=== PATIENT | female | born 1965 | race Caucasian/White ===

== ENCOUNTER 2017-10-27 10:04 | Emergency (ER) | payer BC, OTHER ==
[~2017-10-27 10:04] MED LIST: ISOVUE-370 76%-LOCM 1 ML ONE
[2017-10-27 11:08] LABS: #Basophils 0.1 thou/uL (0.0-0.2); #Eosinphils 0.1 thou/uL (0.0-0.7); #Lymphocytes 2.4 thou/uL (1.20-3.40); #Monocytes 1.1 thou/uL (0.11-0.59); #Neutrophils 9.4 thou/uL (1.40-6.50); %Basophils 0.5 % (0.0-1.0); %Eosinophils 0.5 % (0.0-10.0); %Lymphocytes 18.3 % (21.0-51.0); %Monocytes 8.2 % (0.0-10.0); %Neutrophils 72.4 % (42.0-75.0); Mean Corpuscular HGB CONC 33.7 g/dL (32.0-36.0); Mean Corpuscular Hemoglobin 29.4 pg (27.0-31.0); Mean Platelet Volume 5.4 fL (7.4-10.4); Platelet Count 608 thou/uL (130-400); RBC Distribution Width 13.6 % (11.5-14.5); Red Blood Cell (RBC) Count 4.08 mill/uL (4.20-5.40)
[2017-10-27 11:19] LABS: Bilirubin Negative (Negative); Blood, Urine Negative (Negative); Clarity CLEAR (Clear); Glucose, Urine (Dipstick) Negative (Negative); Leukocyte Negative (Negative); Nitrite Negative (Negative); Protein, Urine (Dipstick) Trace mg/dL (Neg-Trace); Specific Gravity, Urine 1.028 (1.002-1.036)
[2017-10-27 11:31] LABS: ALT (SGPT) 27 U/L (8-55); AST (SGOT) 40 U/L (5-34); Albumin 3.8 g/dL (3.5-5.0); Alkaline Phosphatase 150 U/L (40-150); Anion Gap 16 mmol/L (10-20); BUN (Urea Nitrogen) 11 mg/dL (9.8-20.1); Bilirubin, Total 0.2 mg/dL (0.2-1.2); Calc. Creatinine Clearance 0 mL/min (70-130); Calcium 9.2 mg/dL (7.8-10.44); Carbon Dioxide 23 mmol/L (22-29); Chloride 102 mmol/L (98-107); Estimated GFR-MDRD 88; Globulin 3.6 g/dL (2.4-3.5); Glucose 64 mg/dL (70-105); Potassium 4.5 mmol/L (3.5-5.1); Protein, Total 7.4 g/dL (6.0-8.3); Sodium 136 mmol/L (136-145)
--- NOTE | 2017-10-27 11:43 | CT ---
CT ABDOMEN AND PELVIS WITH IV CONTRAST: Date: 10/27/17 HISTORY: Abdomen pain. FINDINGS: No comparison. Lung bases are clear. Liver, spleen, kidneys, adrenal glands, and pancreas are within normal limits. Nonspecific lymph nodes scattered about the abdomen and pelvis. Degenerative changes lumbar spine. Ur inary bladder decompressed. Small, fat-containing left inguinal hernia. IMPRESSION: No significant abnormalities are demonstrated. POS: ODILIA
== END 2017-10-27 11:43 | disposition home or self-care (01) ==
LOC: ERS 10:04
DX: K40.90 Unilateral inguinal hernia, without obstruction or gangrene, not specified as recurrent (principal); G43.909 Migraine, unspecified, not intractable, without status migrainosus; I10 Essential (primary) hypertension; R56.9 Unspecified convulsions; Z79.899 Other long term (current) drug therapy
CPT/HCPCS: 74177; 80053; 81003; 85025

== ENCOUNTER 2017-10-30 13:59 | Outpatient (CLI) | payer OTHER | END 2017-10-30 14:00 | disposition home or self-care (01) | LOC: LABBT 13:59 | PROVIDERS: ATTEND Specialist | DX: Z01.818 Encounter for other preprocedural examination (principal); K40.90 Unilateral inguinal hernia, without obstruction or gangrene, not specified as recurrent | CPT/HCPCS: 93005; 93010 ==

== ENCOUNTER 2018-01-19 16:26 | Emergency (ER) | payer OTHER ==
[2018-01-19 16:56] LABS: Bilirubin Negative (Negative); Blood, Urine Negative (Negative); Clarity CLEAR (Clear); Glucose, Urine (Dipstick) Negative (Negative); Leukocyte Negative (Negative); Nitrite Negative (Negative); Protein, Urine (Dipstick) Negative (Neg-Trace); Specific Gravity, Urine 1.007 (1.002-1.036); Urobilinogen 0.2 mg/dL (0.2-1.0)
[2018-01-19] MEDS ORDERED: Ketorolac Tromethamine 60 MG/2 ML VIAL ONE (17:15)
--- NOTE | 2018-01-19 18:15 | RAD ---
THREE VIEWS LUMBAR SPINE 01/19/18 HISTORY: Lower back pain with pain radiating down left lower extremity. FINDINGS: There are five nonribbearing lumbar type vertebral bodies. There is a wedge shaped compression fractu re involving the L1 vertebral body. However, the degree of height loss appears similar to study on 10/27/17. The remaining vertebral body heights are within normal limits. No additional fracture is seen and the re is no evidence of a subluxation. There is exaggerated kyphosis of the thoracolumbar spine centered at the level of the compression fracture. There are degenerative changes present at the T12-L1 and L 1-2 levels with narrowing of the intervertebral disc spaces and osteophyte formation. There are facet degenerative changes seen in the lower lumbar spine. IMPRESSION: 1. Wedge shaped compression fracture L1 vertebral body which is stable when compared to CT abdom en on 10/27/17. 2. No evidence of a subluxation. No new fracture is seen. 3. Exaggerated kyphosis at the thoracolumbar junction. POS: MARCELINO
== END 2018-01-19 18:47 | disposition home or self-care (01) ==
LOC: ERS 16:26
DX: G89.29 Other chronic pain (principal); M54.12 Radiculopathy, cervical region; G43.909 Migraine, unspecified, not intractable, without status migrainosus; I10 Essential (primary) hypertension; Z79.899 Other long term (current) drug therapy
CPT/HCPCS: 72100; 81003; 96372; J1885

== ENCOUNTER 2018-03-13 12:07 | Outpatient (CLI) | payer OTHER | END 2018-03-13 12:08 | disposition home or self-care (01) | LOC: BICMRI 12:07 | PROVIDERS: ATTEND Family Medicine | DX: S32.010A Wedge compression fracture of first lumbar vertebra, initial encounter for closed fracture (principal); M51.26 Other intervertebral disc displacement, lumbar region; M99.83 Other biomechanical lesions of lumbar region | CPT/HCPCS: 72148 ==

== ENCOUNTER 2018-04-20 10:39 | Emergency (ER) | payer OTHER ==
[2018-04-20] MEDS ORDERED: ISOVUE-370 76%-LOCM 1 ML ONE (10:49)
[2018-04-20 11:49] LABS: Bilirubin Negative (Negative); Blood, Urine Negative (Negative); Clarity CLEAR (Clear); Glucose, Urine (Dipstick) Negative (Negative); Leukocyte Negative (Negative); Nitrite Negative (Negative); Protein, Urine (Dipstick) Negative (Neg-Trace)
[2018-04-20 11:55] LABS: #Basophils 0.1 thou/uL (0.0-0.2); #Eosinphils 1.3 thou/uL (0.0-0.7); #Lymphocytes 2.2 thou/uL (1.20-3.40); #Monocytes 0.4 thou/uL (0.11-0.59); #Neutrophils 3.6 thou/uL (1.40-6.50); %Basophils 1.1 % (0.0-1.0); %Eosinophils 17.4 % (0.0-10.0); %Lymphocytes 28.8 % (21.0-51.0); %Monocytes 5.4 % (0.0-10.0); %Neutrophils 47.3 % (42.0-75.0); Hemoglobin 12.1 g/dL (12.0-16.0); Mean Corpuscular HGB CONC 32.3 g/dL (32.0-36.0); Mean Corpuscular Hemoglobin 27.8 pg (27.0-31.0); Mean Platelet Volume 6.4 fL (7.4-10.4); Platelet Count 595 thou/uL (130-400); RBC Distribution Width 13.3 % (11.5-14.5); Red Blood Cell (RBC) Count 4.34 mill/uL (4.20-5.40); White Blood Cell (WBC) Count 7.6 thou/uL (4.8-10.8)
[2018-04-20 12:16] LABS: ALT (SGPT) 15 U/L (8-55); AST (SGOT) 20 U/L (5-34); Albumin 4.1 g/dL (3.5-5.0); Alkaline Phosphatase 130 U/L (40-150); Anion Gap 15 mmol/L (10-20); BUN (Urea Nitrogen) 13 mg/dL (9.8-20.1); Bilirubin, Total 0.2 mg/dL (0.2-1.2); Calc. Creatinine Clearance 0 mL/min (70-130); Calcium 10.3 mg/dL (7.8-10.44); Carbon Dioxide 29 mmol/L (22-29); Chloride 98 mmol/L (98-107); Estimated GFR-MDRD 39; Globulin 3.5 g/dL (2.4-3.5); Glucose 124 mg/dL (70-105); Protein, Total 7.6 g/dL (6.0-8.3); Sodium 139 mmol/L (136-145)
[2018-04-20 12:19] LABS: Potassium 2.8 mmol/L (3.5-5.1)
[2018-04-20] MEDS ORDERED: Dicyclomine 20 MG TAB ONE (12:41)
[2018-04-20] MEDS ORDERED: Metoclopramide HCl 10 MG/2 ML VIAL ONE ×2 (12:41→12:43)
--- NOTE | 2018-04-20 13:00 | CT ---
CT CHEST WITH IV CONTRAST: Date: 04/20/18 PROVIDED CLINICAL HISTORY: Fever, recent mastectomy. FINDINGS: The heart, pericardium, and great vessels demonstrate an unremarkable CT appearance. The lungs are free of significant opacity. No pleural fluid or pneumothorax apparent. The airway appears patent and of normal caliber. There is no evidence for thoracic lymph node enlargement. There are a few small foci of gas and noncircumscribed fluid density seen overlying portions of the l eft anterior chest wall. There is no evidence for a focal rim-enhancing fluid collection to suggest a n abscess. The osseous structures demonstrate no concerning lytic or blastic lesions. The visualized portions of the upper abdomen demonstrate no acute abnormality. IMPRESSION: Soft tissue findings involving the subcutaneous adipose layer of the left anterior chest wall compati ble with the provided clinical history of recent mastectomy. There is no evidence for a circumscribed rim-enhancing fluid collection to suggest abscess. POS: PATTI
[2018-04-20] MEDS ORDERED: Pot Chloride/Pot Bicarb/Cit Ac 25 mEq Effervescent Tablet PO SCH (13:30)
== END 2018-04-20 14:01 | disposition home or self-care (01) ==
LOC: ERS 10:39
DX: E87.6 Hypokalemia (principal); R11.2 Nausea with vomiting, unspecified; M79.10 Myalgia, unspecified site; G40.909 Epilepsy, unspecified, not intractable, without status epilepticus; G43.909 Migraine, unspecified, not intractable, without status migrainosus; I10 Essential (primary) hypertension; F41.9 Anxiety disorder, unspecified; Z79.899 Other long term (current) drug therapy
CPT/HCPCS: 36415; 71260; 80053; 81003; 85025; 87804; 96365; 96375; J2765

== ENCOUNTER 2018-12-13 10:59 | Day surgery (SDC) | payer OTHER ==
[2018-12-12 14:29] VITALS: BMI 20.9
[2018-12-13] MEDS ORDERED: Heparin 5,000 UNITS/ML VIAL ONE (11:38)
[2018-12-13] MEDS ORDERED: Lidocaine 1% (PF) 30 ML VIAL ONE (11:46)
[2018-12-13] MEDS ORDERED: Bupivacaine/Epinephrine 0.25% 30 ML VIAL ONE (11:46)
[2018-12-13] MEDS ORDERED: EPINEPHrine 1 MG/ML AMP ONE (11:46)
[2018-12-13] MEDS ORDERED: Gentamicin 80 MG/2 ML VIAL ONE ×2 (11:46→14:13)
[2018-12-13] MEDS ORDERED: Sodium Chloride 0.9% 20 ML ONE ×2 (11:46→14:13)
[2018-12-13] MEDS ORDERED: Fentanyl 100 MCG/2 ML VIAL ONE ×3 (12:03→16:28)
[2018-12-13 12:11] LABS: #Monocytes 0.4 thou/uL (0.11-0.59); %Basophils 0.5 % (0.0-1.0); %Lymphocytes 27.2 % (21.0-51.0); %Monocytes 5.8 % (0.0-10.0); %Neutrophils 53.4 % (42.0-75.0); Hemoglobin 10.3 g/dL (12.0-16.0); Mean Corpuscular Hemoglobin 28.6 pg (27.0-31.0); Mean Corpuscular Volume 86.6 fL (78.0-98.0); Platelet Count 552 thou/uL (130-400); RBC Distribution Width 13.9 % (11.5-14.5); Red Blood Cell (RBC) Count 3.59 mill/uL (4.20-5.40); White Blood Cell (WBC) Count 7.4 thou/uL (4.8-10.8)
[2018-12-13 12:36] LABS: Anion Gap 12 mmol/L (10-20); BUN (Urea Nitrogen) 28 mg/dL (9.8-20.1); Calc. Creatinine Clearance 37 mL/min (70-130); Calcium 9.5 mg/dL (7.8-10.44); Carbon Dioxide 35 mmol/L (22-29); Chloride 95 mmol/L (98-107); Estimated GFR-MDRD 33; Glucose 95 mg/dL (70-105); Sodium 139 mmol/L (136-145)
[2018-12-13 12:37] LABS: Potassium 2.9 mmol/L (3.5-5.1)
[2018-12-13] MEDS ORDERED: ePHEDrine 50 MG/ML VIAL ONE (16:13)
[2018-12-13] MEDS ORDERED: Succinylcholine Chloride 20 MG/ML 10 ml SYRINGE FS ONE (16:13)
[2018-12-13] MEDS ORDERED: PROPOFOL 200 MG/20 ML VIAL ONE (16:13)
[2018-12-13] MEDS ORDERED: Ondansetron PF 4 MG/2 ML Vial ONE (16:13)
[2018-12-13] MEDS ORDERED: Glycopyrrolate 0.2 MG/ML 5 ML SYRINGE ONE (16:13)
[2018-12-13] MEDS ORDERED: PHENYLEPHRINE-NS 100 MCG/ML 10 ML SYRINGE ONE (16:13)
[2018-12-13] MEDS ORDERED: Rocuronium Bromide 10 MG/ML (10ML VIAL) ONE (16:13)
[2018-12-13] MEDS ORDERED: Lidocaine 1% PF 5 ML VIAL ONE (16:13)
[2018-12-13] MEDS ORDERED: HYDROcodone/Acetaminophen 5/325 mg Tablet ONE (18:25)
--- NOTE | 2018-12-14 21:59 | OP ---
DATE OF PROCEDURE: 12/13/2018 PREOPERATIVE DIAGNOSES: 1. Genetic susceptibility of breast cancer. 2. Status post bilateral mastectomy. 3. Status post first-stage breast reconstruction. PROCEDURE PERFORMED: 1. Replacement of bilateral tissue terrazzo polisher helper with significant capsular work (99849.50). 2. Right internal Trae flap 40 cm2 (18412). 3. Bilateral fat grafting (37746.13). DESCRIPTION OF PROCEDURE: Following induction of adequate anesthesia, the patient was prepped and draped in the usual sterile fashion in supine position. Attention was first turned to the patient's right breast. The existing inframammary crease scar was incised through. Dissection was carried sharply down to the very thin layer of subcutaneous tissue to the underlying capsule. The previously placed dermal matrix was identified. A large portion of this does not incorporate it. Therefore, it was sharply removed. The pocket was inspected. The submuscular pocket was in good repair other than being very thin. Capsulotomies were made superiorly from 10'o clock to 12'o clock to 2'o clock for expansion of the pocket superiorly. The inframammary crease had been depressed inferiorly on this side. A capsular flap was then elevated approximately 4 cm in height and 10 cm in width. This was done by elevating off the inferior flap and then recreating a sulcus superiorly, thus elevating the right inframammary crease fold. The skin was then de-epithelialized inferiorly and advanced to the new genu and secured using interrupted 2-0 PDS sutures. The pocket was inspected for meticulous hemostasis and copiously irrigated with dilute antibiotic solution followed by 50% Betadine solution. A Turlock (reference number [id number], serial #[id number] was placed in the pocket with a skin barrier in place. This was done after donning new gloves. The incision was then closed with interrupted and running 3-0 PDS suture followed by 3-0 Prolene suture. A similar procedure was done on the left side except for there was no internal flap to raise the inframammary crease fold. The abdomen was then infiltrated with tumescent fluid. After this had adequate time to take effect, the fat was harvested and allowed to decant. After the separation occurred, the residual fat was injected into a thin plane just beneath the dermis. Approximately 50 mL was injected on the right and 40 on the left. The stab incisions were closed. The patient tolerated the procedure well. Job ID: [id number]
== END 2018-12-13 19:00 | disposition home or self-care (01) ==
LOC: SDC 10:59 → EEVIPCON 10:59 → SDC 19:00
PROVIDERS: ATTEND Plastic Surgery
PROC: 0H0V37Z Alteration of Bilateral Breast with Autologous Tissue Substitute, Percutaneous Approach (ICD-10-PCS; principal; 2018-12-13)
PROC: 0HHV0NZ Insertion of Tissue Expander into Bilateral Breast, Open Approach (ICD-10-PCS; principal; 2018-12-13)
DX: Z42.1 Encounter for breast reconstruction following mastectomy (principal); Z85.3 Personal history of malignant neoplasm of breast; Z88.7 Allergy status to serum and vaccine; Z79.899 Other long term (current) drug therapy
CPT/HCPCS: 80048; 85025; J0171; J0690; J1580; J1644; J2001; J2405; J2704; J3010; J3370; J3490

== ENCOUNTER 2018-12-23 13:26 | Emergency (ER) | payer OTHER | END 2018-12-23 13:54 | disposition home or self-care (01) | LOC: ERS 13:26 | DX: L50.0 Allergic urticaria (principal) | CPT/HCPCS: 99283 ==

== ENCOUNTER 2019-03-28 06:42 | Outpatient (CLI) | payer OTHER ==
[2019-03-28 10:28] LABS: Hemoglobin 10.6 g/dL (12.0-16.0); Mean Corpuscular HGB CONC 33.1 g/dL (32.0-36.0); Mean Corpuscular Volume 87.8 fL (78.0-98.0); Mean Platelet Volume 6.4 fL (7.4-10.4); Platelet Count 512 thou/uL (130-400); RBC Distribution Width 13.8 % (11.5-14.5); Red Blood Cell (RBC) Count 3.66 mill/uL (4.20-5.40); White Blood Cell (WBC) Count 6.6 thou/uL (4.8-10.8)
[2019-03-28 10:36] LABS: Bacteria/HPF None Seen HPF (None Seen); Bilirubin Negative (Negative); Blood, Urine Negative (Negative); Clarity Clear (Clear); Glucose, Urine (Dipstick) Normal (Negative); Leukocyte Negative Leu/uL (Negative); Nitrite Negative (Negative); Protein, Urine (Dipstick) Negative (Neg-Trace); RBC/HPF 0-3 HPF (0-3); Squamous Epithelial 0-3 HPF (0-3); Urobilinogen Normal mg/dL (Less than 2); WBC/HPF 0-3 HPF (0-3)
[2019-03-28 10:48] LABS: Anion Gap 12 mmol/L (10-20); BUN (Urea Nitrogen) 14 mg/dL (9.8-20.1); Calc. Creatinine Clearance 0 mL/min (70-130); Carbon Dioxide 25 mmol/L (22-29); Chloride 105 mmol/L (98-107); Estimated GFR-MDRD 74; Glucose 79 mg/dL (70-105); Potassium 4.7 mmol/L (3.5-5.1); Sodium 137 mmol/L (136-145)
--- NOTE | 2019-03-28 18:52 | EKG ---
Test Reason : Blood Pressure : / mmHG Vent. Rate : 051 BPM Atrial Rate : 051 BPM P-R Int : 146 ms QRS Dur : 086 ms QT Int : 476 ms P-R-T Axes : 049 051 050 degrees QTc Int : 438 ms Sinus bradycardia Possible Left atrial enlargement Abnormal ECG When compared with ECG of 30-OCT-2017 14:30, Vent. rate has decreased BY 31 BPM Minimal criteria for Inferior infarct are no longer Present Confirmed by CHERYL BRUNNER, SMaksim ([id number]) on 03/28/2019 6:51:39 PM Referred By: GREG Confirmed By:DR. Chaim LUNA MD
== END 2019-03-28 06:43 | disposition home or self-care (01) ==
LOC: LABBT 06:42
PROVIDERS: ATTEND Urology
DX: Z01.818 Encounter for other preprocedural examination (principal); N81.10 Cystocele, unspecified; N39.3 Stress incontinence (female) (male)
CPT/HCPCS: 80048; 81001; 85027; 93005; 93010

== ENCOUNTER 2019-04-08 09:24 | Observation (INO) | payer OTHER ==
[2019-03-28 09:11] VITALS: BMI 20.9
[2019-04-08] MEDS ORDERED: Bupivacaine 0.25% HCL 30 ML VIAL ONE (10:54)
[2019-04-08] MEDS ORDERED: Fentanyl 100 MCG/2 ML VIAL ONE ×3 (11:43→17:31)
[2019-04-08] MEDS ORDERED: Midazolam HCl 2 mg/2 ml Vial ONE (11:43)
[2019-04-08] MEDS ORDERED: CEFAZOLIN 1 GM VIAL ONE (12:00)
[2019-04-08] MEDS ORDERED: metroNIDAZOLE 500 MG/100 ML BAG ONE (12:00)
[2019-04-08] MEDS ORDERED: Promethazine HCl 25 MG/ML VIAL SLOW IVP PRN (14:17)
[2019-04-08] MEDS ORDERED: Promethazine HCl 25 MG/ML VIAL IM PRN (14:17)
[2019-04-08] MEDS ORDERED: Ondansetron HCl/PF 4 MG/2 ML Vial IVP PRN (14:17)
[2019-04-08] MEDS ORDERED: diphenhydrAMINE 50 MG/ML VIAL IVP PRN (14:19)
[2019-04-08] MEDS ORDERED: Ondansetron PF 4 MG/2 ML Vial IVP PRN (14:19)
[2019-04-08] MEDS ORDERED: Promethazine HCl 25 MG/ML VIAL ONE (14:34)
[2019-04-08] MEDS ORDERED: Glycopyrrolate 0.2 MG/ML 5 ML SYRINGE ONE ×2 (16:44)
[2019-04-08] MEDS ORDERED: Rocuronium Bromide 10 MG/ML (10ML VIAL) ONE (16:44)
[2019-04-08] MEDS ORDERED: ePHEDrine 50 MG/ML VIAL ONE (16:44)
[2019-04-08] MEDS ORDERED: PROPOFOL 200 MG/20 ML VIAL ONE (16:44)
[2019-04-08] MEDS ORDERED: Lidocaine 1% PF 5 ML VIAL ONE (16:44)
[2019-04-08] MEDS ORDERED: Ketorolac Tromethamine 30 MG/ML VIAL ONE (16:44)
[2019-04-08] MEDS ORDERED: clonazePAM 1 MG TAB PO PRN (18:41)
[2019-04-08] MEDS ORDERED: Zolpidem Tartrate 5 MG TAB PO PRN (18:42)
[2019-04-08] MEDS: Hyoscyamine Sulfate SL 0.125 mg Tablet SL SCH ×2 (18:46→23:13)
[2019-04-08] MEDS: Ketorolac Tromethamine 30 MG/ML VIAL IVP SCH ×2 (18:46→23:15)
[2019-04-08] MEDS: Sodium Chloride 0.9% 1,000 ML IV SCH (18:48)
--- NOTE | 2019-04-08 19:56 | OP ---
DATE OF PROCEDURE: 04/08/2019 PREOPERATIVE DIAGNOSES: Cystocele, stress incontinence. POSTOPERATIVE DIAGNOSES: Cystocele, stress incontinence. PROCEDURES PERFORMED: Anterior repair, midurethral sling-transobturator, cystoscopy under anesthesia. ANESTHESIA: General. COMPLICATIONS: None. BLOOD LOSS: 150 mL. SPECIMEN: None. DESCRIPTION OF PROCEDURE: After informed consent, the patient was taken to the operating room, transferred to the table on her own power. Anesthesia was established. A time-out was performed showing correct patient, site, and procedure. Preoperative antibiotics were administered. She was prepped and draped in the lithotomy position. A 16-[place] Matthews catheter was placed. I began by infiltrating along the anterior aspect of the vagina in the midline with 0.25% Marcaine. I also injected up toward the obturator fossa on each side of the urethra. A midline incision was performed and sharp dissection utilized to dissect the bladder free from the vaginal tissue. Once adequate dissection was obtained, I continued anteriorly along the urethra and was able to develop the space along either side of the urethra, toward the obturator fossa. Anterior repair was performed with 2-0 Vicryl suture in an interrupted fashion. Three layers were utilized to correct the defect, taking care to secure a suitable fascia. Once the prolapse was reduced, stab incisions were made just below the adductor longus tendon on either side. The trocars were passed and the sling affixed to these. The trocars were backed out and the sling was tensioned. I was unhappy with the placement of the sling, noting that it was too far toward the bladder neck and attempted to back the sling out, but was unable to do so. The sling was then removed and a new sling opened. The trocars were passed once again, taking care to ensure that the tip of the trocar came out right at the midurethra. The sling was then attached and tensioned over a marking pen cap. The location of the sling was much improved with the second pass. I then removed the Matthews catheter and performed rigid cystoscopy, noting no bladder injury or visible mesh. The scope was then withdrawn and the patient was checked that she no longer had stress incontinence. I was only able to elicit a very small amount of leakage with significant pressure. The Matthews catheter was then replaced. The edges of the vaginal mucosa were trimmed and closed subcutaneously with Vicryl and then the entirety of the midline incision was run with 2-0 chromic. Vaginal packing was placed and the stab incisions dressed with Dermabond. The patient was then awoken from anesthesia, transferred back to her hospital bed, and taken to PACU in stable condition where she will be admitted overnight. Job ID: [id number]
[2019-04-08] MEDS: ceFAZolin 1 GM/D5W 1 GM in Premix Bag 1 BAG IVPB SCH (21:00)
[2019-04-08] MEDS ORDERED: Amitriptyline HCl 25 MG TAB PO SCH (21:00)
[2019-04-08] MEDS ORDERED: levETIRAcetam 500 MG TAB PO SCH (21:00)
[2019-04-08] MEDS ORDERED: Carvedilol 25 MG TAB PO SCH (21:00)
[2019-04-08] MEDS: Docusate 100 MG CAP PO SCH (21:09)
[2019-04-08] MEDS: Gabapentin 300 MG CAP PO SCH (21:25)
[2019-04-08] MEDS: HYDROcodone/Acetaminophen 5/325 mg Tablet PO PRN (21:30)
[2019-04-09] MEDS: Sodium Chloride 0.9% 1,000 ML IV SCH ×3 (02:20→18:21)
[2019-04-09] MEDS: ceFAZolin 1 GM/D5W 1 GM in Premix Bag 1 BAG IVPB SCH ×3 (03:17→20:23)
[2019-04-09] MEDS: Ketorolac Tromethamine 30 MG/ML VIAL IVP SCH ×4 (06:01→23:40)
[2019-04-09] MEDS: Hyoscyamine Sulfate SL 0.125 mg Tablet SL SCH ×4 (06:01→23:40)
[2019-04-09] MEDS: HYDROcodone/Acetaminophen 5/325 mg Tablet PO PRN ×2 (06:20→15:53)
[2019-04-09] MEDS ORDERED: Non-Formulary Item 1 EACH (Clonazepam [Clonazepam] 1 MG) PO PRN (08:45)
[2019-04-09] MEDS ORDERED: ESOMEPRAZOLE MAGNESIUM 20 MG PO PRN (08:45)
[2019-04-09] MEDS ORDERED: Non-Formulary Item 1 EACH (Zolpidem Tartrate [Ambien] 10 MG) PO PRN (08:45)
[2019-04-09] MEDS: Docusate 100 MG CAP PO SCH ×2 (08:52→20:25)
[2019-04-09] MEDS: Gabapentin 300 MG CAP PO SCH ×2 (08:52→15:54)
[2019-04-09] MEDS ORDERED: Potassium Chloride 10 MEQ TAB PO SCH (09:00)
[2019-04-09] MEDS ORDERED: Hydrochlorothiazide 25 MG TAB PO SCH (09:00)
[2019-04-09] MEDS ORDERED: clonazePAM 1 MG TAB PO PRN (09:02)
[2019-04-09] MEDS ORDERED: Zolpidem Tartrate 5 MG TAB PO PRN (09:07)
[2019-04-09] MEDS: Morphine 4 MG/ML VIAL SLOW IVP PRN ×2 (10:04→18:22)
--- NOTE | 2019-04-09 12:14 | DIS ---
DATE OF ADMISSION: 04/08/2019 DATE OF DISCHARGE: 04/09/2019 CHIEF COMPLAINT: Cystocele with incontinence. DISCHARGE DIAGNOSES: Cystocele with prolapse, stress incontinence, chronic pain, migraines. PROCEDURE: Cystocele repair with midurethral sling. HOSPITAL COURSE: Ms. Johny jerry underwent an uncomplicated cystocele repair with placement of midurethral sling on April 08. She was managed overnight with pain control with Matthews catheter indwelling. The following morning, we decided to leave the Matthews catheter for several days. She was tolerating oral intake, ambulating, and stable for discharge home. DISCHARGE INSTRUCTIONS: Light nonstressful activities, bathing regularly, Matthews catheter care. DISCHARGE MEDICATIONS: 1. Lihue. 2. Bactrim. 3. Ibuprofen. 4. Docusate. PLAN: Follow up on next Sunday for catheter removal. Job ID: [id number]
[2019-04-09] MEDS: Fluconazole 100 MG TAB PO SCH (12:26)
[2019-04-09] MEDS: Hydrochlorothiazide 25 MG TAB PO SCH (12:26)
[2019-04-09] MEDS: Potassium Chloride 10 MEQ TAB PO SCH (12:26)
[2019-04-09] MEDS ORDERED: Non-Formulary Item 1 EACH (Levetiracetam [Keppra] 1,000 MG) PO SCH (21:00)
[2019-04-09] MEDS ORDERED: Gabapentin 300 MG CAP PO SCH (21:00)
[2019-04-09] MEDS ORDERED: CARVEDILOL 50 MG PO SCH (21:00)
[2019-04-09] MEDS ORDERED: Amitriptyline HCl 25 MG TAB PO SCH (21:00)
[2019-04-09] MEDS ORDERED: Carvedilol 25 MG TAB PO SCH (21:00)
[2019-04-09] MEDS ORDERED: levETIRAcetam 500 MG TAB PO SCH (21:00)
[2019-04-10] MEDS: ceFAZolin 1 GM/D5W 1 GM in Premix Bag 1 BAG IVPB SCH ×2 (04:45→11:41)
[2019-04-10] MEDS: Ketorolac Tromethamine 30 MG/ML VIAL IVP SCH ×2 (05:45→11:41)
[2019-04-10] MEDS: Hyoscyamine Sulfate SL 0.125 mg Tablet SL SCH ×2 (05:45→11:43)
[2019-04-10] MEDS: Potassium Chloride 10 MEQ TAB PO SCH (07:57)
[2019-04-10] MEDS: Fluconazole 100 MG TAB PO SCH (07:57)
[2019-04-10] MEDS: Gabapentin 300 MG CAP PO SCH (07:57)
[2019-04-10] MEDS: Hydrochlorothiazide 25 MG TAB PO SCH (07:58)
[2019-04-10] MEDS: Morphine 4 MG/ML VIAL SLOW IVP PRN (07:58)
[2019-04-10] MEDS: Docusate 100 MG CAP PO SCH (07:58)
[2019-04-10] MEDS: Sodium Chloride 0.9% 1,000 ML IV SCH (10:55)
[2019-04-10] MEDS: HYDROcodone/Acetaminophen 5/325 mg Tablet PO PRN (11:49)
[2019-04-10 13:25] VITALS: BP 122/66; TEMP 97.9
== END 2019-04-10 13:20 | disposition home or self-care (01) ==
LOC: SDC 09:24 → SJJU 14:19
PROVIDERS: ADMIT Urology; ATTEND Urology
PROC: 0TSD0ZZ Reposition Urethra, Open Approach (ICD-10-PCS; principal; 2019-04-08)
PROC: 0JQC0ZZ Repair Pelvic Region Subcutaneous Tissue and Fascia, Open Approach (ICD-10-PCS; 2019-04-08)
DX: N81.10 Cystocele, unspecified (principal); N39.3 Stress incontinence (female) (male); I10 Essential (primary) hypertension; D64.9 Anemia, unspecified; K21.9 Gastro-esophageal reflux disease without esophagitis; F41.9 Anxiety disorder, unspecified; F32.9 Major depressive disorder, single episode, unspecified; M19.90 Unspecified osteoarthritis, unspecified site; Z79.899 Other long term (current) drug therapy; Z88.7 Allergy status to serum and vaccine; Z91.040 Latex allergy status
CPT/HCPCS: 96374; 96375; 96376; G0378; J0690; J1885; J2250; J2270; J2550; J3010; S0020